=== PATIENT | male | born 1990 | race Caucasian/White ===

== ENCOUNTER 2019-12-02 04:22 | Emergency (ER) | payer MEDICAID ==
[~2019-12-02] VITALS: Ht 175.3 cm; Wt 80.0 kg
[2019-12-02] MEDS ORDERED: ONDANSETRON HCL 4MG/2ML INJ IV STA (04:41)
[2019-12-02] MEDS ORDERED: SODIUM CHLORIDE 0.9% 1,000 ML IV ONE (04:41)
[2019-12-02 06:06] VITALS: BP 125/67
== END 2019-12-02 06:07 | disposition home or self-care (01) ==
LOC: ER 04:22
DX: E86.0 Dehydration (principal); R00.0 Tachycardia, unspecified
CPT/HCPCS: 93005; 96374; 99283; J2405; J7030

== ENCOUNTER 2019-12-12 18:15 | Emergency (ER) | payer MEDICAID ==
[~2019-12-12] VITALS: Ht 175.3 cm; Wt 77.0 kg
[2019-12-12] MEDS ORDERED: MAGNESIUM/ALUMINUM HYDROXIDE/SIMETHICONE 30ML UDC PO STA (19:04)
[2019-12-12] MEDS ORDERED: FAMOTIDINE 20MG TABLET PO ONE (19:15)
[2019-12-12 19:54] LABS: BASOPHILS % 0.4 % (0.0-2.0); EOSINOPHILS % 0.6 % (0.0-5.0); HEMATOCRIT. 44.8 % (42.0-52.0); LYMPHOCYTES % 28.5 % (20.0-50.0); MEAN CORPUSCULAR HEMOGLOBIN 30.8 pg (28.0-32.0); MEAN CORPUSCULAR VOLUME 86.6 fL (80.0-94.0); MEAN PLATELET VOLUME 9.5 fl (7.4-10.4); MONOCYTES % 4.7 % (2.0-8.0); NEUTROPHILS % 65.8 % (40.0-76.0); PLATELET 159 x1000/uL (130-400); RED BLOOD CELL COUNT 5.17 mill/uL (4.7-6.1); RED CELL DISTRIBUTION WIDTH 13.7 % (11.6-14.6)
[2019-12-12 19:58] LABS: CHLORIDE 107 mEq/L (98-107)
[2019-12-12] MEDS ORDERED: IBUPROFEN 600MG TABLET PO ONE (20:45)
[2019-12-12 21:00] VITALS: BP 125/84
== END 2019-12-12 21:02 | disposition home or self-care (01) ==
LOC: ER 18:15
DX: R07.89 Other chest pain (principal); R10.13 Epigastric pain; R00.2 Palpitations; R03.0 Elevated blood-pressure reading, without diagnosis of hypertension
CPT/HCPCS: 36415; 71045; 80053; 85025; 93005; 99285

== ENCOUNTER 2020-01-03 00:36 | Emergency (ER) | payer MEDICAID ==
[~2020-01-03] VITALS: Ht 170.2 cm; Wt 80.0 kg
[2020-01-03] MEDS ORDERED: ACETAMINOPHEN 500MG TABLET PO ONE (01:00)
[2020-01-03 01:30] VITALS: BP 128/74
== END 2020-01-03 01:30 | disposition home or self-care (01) ==
LOC: ER 00:53
DX: U07.1 COVID-19 (principal); R51 Headache
CPT/HCPCS: 87635; 99282; 99283

== ENCOUNTER 2020-02-16 04:19 | Emergency (ER) | payer SELFPAY ==
[~2020-02-16] VITALS: Ht 175.3 cm; Wt 77.0 kg
[2020-02-16] MEDS ORDERED: KETOROLAC 15MG/ML VIAL IV ONE (06:45)
[2020-02-16 09:38] VITALS: BP 118/76
== END 2020-02-16 09:50 | disposition home or self-care (01) ==
LOC: ER 04:19
DX: R07.89 Other chest pain (principal); Z90.49 Acquired absence of other specified parts of digestive tract
CPT/HCPCS: 71045; 93005; 96374; 99283; J1885

== ENCOUNTER 2020-03-06 17:57 | Emergency (ER) | payer SELFPAY ==
[~2020-03-06] VITALS: Ht 175.3 cm; Wt 76.0 kg
[2020-03-06 22:27] LABS: BASOPHILS % 0.6 % (0.0-2.0); HEMATOCRIT. 46.1 % (42.0-52.0); HEMOGLOBIN. 15.7 g/dL (14.0-18.0); MEAN CORPUSCULAR HEMOGLOBIN 30.4 pg (28.0-32.0); MEAN CORPUSCULAR VOLUME 89.2 fL (80.0-94.0); MEAN PLATELET VOLUME 9.5 fl (7.4-10.4); MONOCYTES % 4.1 % (2.0-8.0); NEUTROPHILS % 74.3 % (40.0-76.0); PLATELET 174 x1000/uL (130-400); RED BLOOD CELL COUNT 5.17 mill/uL (4.7-6.1); RED CELL DISTRIBUTION WIDTH 14.2 % (11.6-14.6)
[2020-03-06 22:33] LABS: CHLORIDE 105 mEq/L (98-107)
[2020-03-06 22:35] LABS: CLARITY URINE CLEAR (CLEAR); COLOR URINE YELLOW (YELLOW); KETONES URINE NEGATIVE (NEGATIVE); LEUKOCYTE ESTERASE URINE NEGATIVE (NEGATIVE); NITRITE URINE NEGATIVE (NEGATIVE); OCCULT BLOOD URINE NEGATIVE (NEGATIVE); PH URINE 5.5 (4.5-8.0); PROTEIN URINE NEGATIVE (NEGATIVE); SPECIFIC GRAVITY URINE 1.022 (1.005-1.030); UROBILINOGEN URINE 0.2 E.U./dL (0.2-1.0)
[2020-03-07 00:09] VITALS: BP 131/79
== END 2020-03-07 00:11 | disposition home or self-care (01) ==
LOC: ER 17:57
DX: M54.5 Low back pain (principal); R07.89 Other chest pain; F41.9 Anxiety disorder, unspecified; Z90.49 Acquired absence of other specified parts of digestive tract
CPT/HCPCS: 36415; 80053; 81003; 85025; 93005; 99284